=== PATIENT | female | born 1980 | race Caucasian/White ===

== ENCOUNTER 2018-02-23 09:34 | Inpatient (IN) | payer SELFPAY ==
[~2018-02-23 09:34] MED LIST: Bicitra 30 ML UDCUP PO SCH; CEFAZOLIN/Water 2 GM/20 ML SYRINGE SLOW IVP SCH; Ondansetron PF 4 MG/2 ML Vial IVP PRN; Promethazine HCl 25 MG/ML VIAL IM PRN
[2018-02-23 10:29] VITALS: BMI 33.4
[2018-02-23] MEDS: Lactated Ringer's 1,000 ML IV SCH ×2 (10:30→10:50)
[2018-02-23] MEDS ORDERED: CEFAZOLIN 2 GM/50 ML-DEXTROSE 2 GM in Premix Bag 1 BAG IVPB SCH (10:45)
[2018-02-23 11:20] LABS: Hemoglobin 11.8 g/dL (12.0-16.0); Mean Corpuscular HGB CONC 32.8 g/dL (32.0-36.0); Mean Corpuscular Hemoglobin 28.2 pg (27.0-31.0); Mean Corpuscular Volume 85.7 fL (78.0-98.0); Mean Platelet Volume 9.9 fL (7.4-10.4); Platelet Count 209 thou/uL (130-400); RBC Distribution Width 13.9 % (11.5-14.5); Red Blood Cell (RBC) Count 4.18 mill/uL (4.20-5.40); White Blood Cell (WBC) Count 7.4 thou/uL (4.8-10.8)
[2018-02-23] MEDS ORDERED: Morphine PF 1 MG/ML SYR ONE (11:51)
[2018-02-23] MEDS ORDERED: Oxytocin 10 UNITS/ML VIAL ONE ×2 (11:52→12:50)
[2018-02-23] MEDS ORDERED: Ondansetron PF 4 MG/2 ML Vial ONE (11:52)
[2018-02-23] MEDS ORDERED: ePHEDrine/0.9% NaCl/PF SYRINGE 50 mg/10 ml ONE (11:52)
[2018-02-23 12:04] LABS: Syphilis Antibody Nonreactive (Nonreactive); Syphilis Antibody Index 0.05 S/CO (<1.00 Non-Reactive)
[2018-02-23 12:07] LABS: HBSAg Index 0.15 S/CO (0-0.99); Hep B Surf Ag Non-Reactive S/CO (NonReactive)
[2018-02-23] MEDS ORDERED: Fentanyl 100 MCG/2 ML VIAL ONE ×2 (12:50→13:04)
[2018-02-23] MEDS ORDERED: Ketorolac Tromethamine 30 MG/ML VIAL ONE (13:40)
[2018-02-23] MEDS ORDERED: HYDROmorphone 0.5 MG/0.5 ML SYRINGE SLOW IVP PRN (13:48)
[2018-02-23] MEDS ORDERED: Ketorolac Tromethamine 30 MG/ML VIAL IVP PRN (13:48)
[2018-02-23] MEDS ORDERED: Eucerin (Mineral Oil/Petrolatum,White) 30 gm Jar TOP PRN (13:48)
[2018-02-23] MEDS ORDERED: Ondansetron PF 4 MG/2 ML Vial IVP PRN ×2 (13:48→15:53)
[2018-02-23] MEDS ORDERED: Promethazine HCl 25 MG SUPP PR PRN (13:48)
[2018-02-23] MEDS ORDERED: diphenhydrAMINE 50 MG/ML VIAL IVP PRN (13:48)
[2018-02-23] MEDS ORDERED: Naloxone HCl 0.4 mg/ml Vial IVP PRN ×2 (13:48)
[2018-02-23] MEDS ORDERED: Promethazine HCl 25 MG/ML VIAL IM PRN ×2 (13:48→15:53)
[2018-02-23] MEDS ORDERED: Naloxone HCl 0.4 mg/ml Vial IV PRN (13:48)
[2018-02-23] MEDS ORDERED: Communication Order-Pharmacy FS SCH (14:00)
[2018-02-23] MEDS ORDERED: diphenhydrAMINE 25 MG CAP PO PRN (15:53)
[2018-02-23] MEDS ORDERED: NS / Oxytocin 40 units/1000ml 1,000 ML IV SCH (15:53)
[2018-02-23] MEDS ORDERED: Measles/Mumps/Rubella 10 MCG/0.5 ML VIAL SC ONE (15:53)
[2018-02-23] MEDS ORDERED: Lanolin Ointment 7 GM TUBE TOP PRN (15:53)
[2018-02-23] MEDS ORDERED: Varicella virus, LIVE 0.5 ML VIAL SC ONE (15:53)
[2018-02-23] MEDS ORDERED: Ibuprofen 800 MG TAB PO SCH (15:53)
[2018-02-23] MEDS ORDERED: Adacel (T-DAP) 0.5 ML SYRINGE IM ONE (15:53)
[2018-02-23] MEDS ORDERED: Bisacodyl 10 MG SUPP PR PRN (15:53)
[2018-02-23] MEDS: Ketorolac Tromethamine 30 MG/ML VIAL IVP PRN (21:12)
[2018-02-23] MEDS: Docusate Calcium (SURFAK) 240 MG CAP PO SCH (22:50)
[2018-02-24] MEDS ORDERED: HYDROcodone/Acetaminophen 5/325 mg Tablet PO PRN ×2 (02:00)
[2018-02-24] MEDS ORDERED: Zolpidem Tartrate 5 MG TAB PO PRN (02:00)
[2018-02-24] MEDS: Ketorolac Tromethamine 30 MG/ML VIAL IVP PRN (05:19)
[2018-02-24 07:43] LABS: Hemoglobin 10.4 g/dL (12.0-16.0); Mean Corpuscular HGB CONC 33.8 g/dL (32.0-36.0); Mean Corpuscular Hemoglobin 28.7 pg (27.0-31.0); Mean Corpuscular Volume 84.9 fL (78.0-98.0); Mean Platelet Volume 10.2 fL (7.4-10.4); Platelet Count 174 thou/uL (130-400); RBC Distribution Width 13.8 % (11.5-14.5); Red Blood Cell (RBC) Count 3.61 mill/uL (4.20-5.40); White Blood Cell (WBC) Count 9.9 thou/uL (4.8-10.8)
[2018-02-24] MEDS: Docusate Calcium (SURFAK) 240 MG CAP PO SCH ×2 (10:11→21:25)
[2018-02-24] MEDS: Simethicone Chewable 80 MG TAB PO PRN ×2 (10:12→21:25)
[2018-02-24] MEDS: Ibuprofen 800 MG TAB PO SCH ×2 (14:47→21:25)
--- NOTE | 2018-02-24 18:33 | PDOC.LDHP ---
Labor and Delivery H&P Chief complaint: scheduled section HPI: 37 y/o at 39 and 1/7 weeks with EDC 03/01/18, with late transfer of care, for repeat LTCS. Due date: 03/01/18 Grav: 3 Para: 2 Current complications: none Abnormal US findings: No Current medications: pre- vitamins Previous surgical history: low tranverse CS Allergies/Adverse Reactions: Allergies Allergy/AdvReac Type Severity Reaction Status Date / Time No Known Allergies Allergy Verified 02/23/18 10:08 Social history: none - Physical Exam Vital signs reviewed and normal: yes General: NAD, resting Heart: RRR Lungs: CTAB Abdomen: NTTP Extremeties: no edema FHT: category 1 - Assessment L&D Assessment: scheduled repeat section - Plan Plan: admit to L&D, to OR for section
--- NOTE | 2018-02-24 18:35 | PDOC.PP ---
Post Progress Note Post Day #: 1 PO intake tolerated: yes Flatus: no Ambulation: yes Vital Signs (12 hours) Temp Pulse Resp BP Pulse Ox 02/24/18 11:46 98.2 F 94 20 128/78 02/24/18 08:45 98 02/24/18 08:20 98.2 F 76 20 135/86 98 Weight Weight 220 lb 7.396 oz - Physical Examination General: NAD Cardiovascular: no m/r/g, RRR Respiratory: clear to auscultation bilaterally, non-labored breathing Abdominal: + bowel sounds, no distention, appropriately TTP Extremities: negative homans (B) Skin: CS incision dry & intact, no rash Neurological: no gross focal deficits Psychiatric: A&Ox3, normal affect Result Diagrams: 02/24/18 07:07 Additional Labs: Post Labs Blood Type A POSITIVE 02/23/18 11:12 Hep Bs Antigen Non-Reactive S/CO (NonReactive) 02/23/18 11:12
[2018-02-25] MEDS: Ibuprofen 800 MG TAB PO SCH ×2 (05:46→14:10)
--- NOTE | 2018-02-25 06:14 | PDOC.PP ---
Post Progress Note Post Day #: 2 Subjective: Doing well; had BM already PO intake tolerated: yes Flatus: yes Ambulation: yes Vital Signs (12 hours) Temp Pulse Resp BP BP Pulse Ox 02/25/18 05:50 97.5 F L 73 16 132/79 02/24/18 23:00 98.4 F 87 16 137/78 02/24/18 20:20 98.1 F 87 20 127/74 100 Weight Weight 220 lb 7.396 oz - Physical Examination General: NAD Cardiovascular: no m/r/g Respiratory: clear to auscultation bilaterally Abdominal: + bowel sounds, lochia, no distention, appropriately TTP Extremities: negative homans (B) Skin: CS incision dry & intact (sutured and DB in use) Neurological: no gross focal deficits Psychiatric: A&Ox3, normal affect Result Diagrams: 02/24/18 07:07 Additional Labs: Post Labs Blood Type A POSITIVE 02/23/18 11:12 Hep Bs Antigen Non-Reactive S/CO (NonReactive) 02/23/18 11:12 (1) Single delivery by section Code(s): O82 - ENCOUNTER FOR DELIVERY WITHOUT INDICATION Status: Acute - Assessment/Plan POD 2 from repeat CS Desires to go home today No evidence of ileus or metritis Final DX: S/P Repeat Multiparous Routine postop care
[2018-02-25 08:57] VITALS: BP 141/81; TEMP 97.7
[2018-02-25] MEDS: Docusate Calcium (SURFAK) 240 MG CAP PO SCH (09:19)
== END 2018-02-25 17:26 | disposition home or self-care (01) | DRG 788 ==
LOC: L&D 09:35 → 3SW 15:58
PROVIDERS: ADMIT Obstetrics & Gynecology; ATTEND Obstetrics & Gynecology
PROC: 10D00Z1 Extraction of Products of Conception, Low, Open Approach (ICD-10-PCS; principal; 2018-02-23)
DX: O34.211 Maternal care for low transverse scar from previous cesarean delivery (principal); Z3A.39 39 weeks gestation of pregnancy; Z37.0 Single live birth
CPT/HCPCS: 36415; 36416; 51702; 85027; 86780; 86850; 86900; 86901; 87340; 90707; 90715; 90716; J1885; J2274; J2405; J2590; J3010